=== PATIENT | female | born 1990 | race Caucasian/White ===

== ENCOUNTER 2017-10-09 13:55 | Emergency (ER) | payer MEDICAID ==
[2017-10-09] MEDS: PENICILLIN G BENZ 2.4 MIL UNIT SYG IM (16:43)
== END 2017-10-09 18:01 | disposition home or self-care (01) ==
LOC: E/R 13:55 → FTE 18:01
DX: A53.9 Syphilis, unspecified (principal); F17.210 Nicotine dependence, cigarettes, uncomplicated
CPT/HCPCS: 96372; 99284-25

== ENCOUNTER 2017-10-23 13:40 | Emergency (ER) | payer MEDICAID ==
[2017-10-23] MEDS: HYDROCODONE/APAP (5/325) TAB PO (18:51)
[2017-10-23] MEDS: PENICILLIN G BENZ 2.4 MIL UNIT SYG IM (18:51)
== END 2017-10-23 20:35 | disposition home or self-care (01) ==
LOC: FTE 13:40
DX: S93.401A Sprain of unspecified ligament of right ankle, initial encounter (principal); X58.XXXA Exposure to other specified factors, initial encounter; Y92.9 Unspecified place or not applicable
CPT/HCPCS: 73610; 73610-RT; 73630; 96372; 99284-25